=== PATIENT | female | born 1985 | race Caucasian/White ===

== ENCOUNTER 2022-03-03 09:25 | Emergency (ER) | payer BC ==
[~2022-03-03] VITALS: Ht 170 cm; Wt 120.2 kg
[2022-03-03 09:36] VITALS: BP 134/82
--- NOTE | 2022-03-03 11:16 | ED Cough/URI ---
General Chief Complaint: Fever-Adult/Adol Stated Complaint: FEVER,COUGH,NAUSEA Nursing Triage Note: Pt presents with c/o fever, loss of taste and smell and body aches that started Wednesday. Pt is 8 weeks and requesting a Covid PCR. Source: patient Exam Limitations: no limitations History of Present Illness Date Seen by Provider: Mar 03, 2022 Time Seen by Provider: 11:03 Initial Comments Here with concerns about having COVID. [facility] and and had COVID test that was negative. She has had recent loss of taste and smell as well as body aches and a low-grade fever. She is currently 8 weeks and would like repeat testing. Also complains of some left ear pain and and is concerned about sinus infection with sinus pain, nasal drainage and mild cough. Timing/Duration: getting worse, other (2 days) Severity/Quality: mild, moderate, dry cough Prior Episodes/Possible Cause: occasional episodes Associated Symptoms: cough, earache, fever/chills, nasal congestion Allergies and Home Medications Allergies Coded Allergies: No Known Drug Allergies (Unverified , 03/03/22) Patient Home Medication List Home Medication List Reviewed: Yes Review of Systems Review of Systems Constitutional: No chills; fever EENTM: ear pain, nose congestion Respiratory: cough; No short of breath Gastrointestinal: nausea; No vomiting Musculoskeletal: muscle pain; No muscle weakness Skin: no symptoms reported Past Exqwiur-Vgjupw-Serzcc Hx Patient Social History Tobacco Use?: Yes Use of E-Cig and/or Vaping dev: Yes E-Cig or Vaping type used: Nicotine Substance use?: No Alcohol Use?: No Immunizations Up To Date First/Initial COVID19 Vaccinat: unknown Second COVID19 Vaccination Yfn: unknown Past Medical History Surgeries: Yes Abdominal (Gastric sleeve), Gallbladder Respiratory: Yes Asthma Cardiac: No Last Menstrual Period: Jan 04, 2022 Family Medical History Reviewed and Corrections made No Pertinent Family Hx Physical Exam Vital Signs - First Documented 03/03/22 09:36 Temp 36.8 Pulse 74 Resp 18 B/P (MAP) 134/82 (99) Capillary Refill : Less Than 3 Seconds Height: '" Weight: lbs. oz. kg; 41.00 BMI Method: General Appearance: WD/WN, no apparent distress HEENT: PERRL/EOMI, TM abnormal (L) (Mild bulging without erythema), pharyngeal erythema (Mild) Neck: full range of motion, supple, normal inspection; No lymphadenopathy (R), No lymphadenopathy (L) Respiratory: lungs clear, normal breath sounds Cardiovascular: regular rate, rhythm, no murmur Neurologic/Psychiatric: alert, oriented x 3 Skin: normal color, warm/dry Progress/Results/Core Measures Suspected Sepsis SIRS Temperature: Pulse: 74 Respiratory Rate: 18 Blood Pressure 134 /82 Mean: 99 Results/Orders Lab Results Laboratory Tests Test 03/03/22 11:15 Range/Units Influenza Type A (RT-PCR) Not Detected Not Detecte Influenza Type B (RT-PCR) Not Detected Not Detecte SARS-CoV-2 RNA (RT-PCR) Detected H Not Detecte My Orders Orders - SCAR ANDUJAR MD Covid 19 Inhouse Test (03/03/22 11:08) Influenza A And B By Pcr (03/03/22 11:08) Vital Signs/I&O 03/03/22 09:36 Temp 36.8 Pulse 74 Resp 18 B/P (MAP) 134/82 (99) Capillary Refill : Less Than 3 Seconds Blood Pressure Mean: 99 Progress Note : Progress Note Seen and evaluated. We will go ahead and get COVID test especially in light of her and she reports this is a high risk . Monitor patient. 1159: COVID is positive. Patient informed. We did discuss potential for therapeutics but we will defer that to her racking technician. I have sent a copy of the note to his office and she will call him for guidance. Otherwise supportive therapy indicated. This was discussed with the patient. Discharged home with return precautions. Patient verbalized understanding instructions and agreement with plan. Departure Impression Primary Impression: COVID-19 virus infection Disposition: HOME, SELF-CARE Condition: Stable Departure-Patient Inst. Decision time for Depature: 12:00 Referrals: DAVID SOMMERS MD [facility],ALEJANDRO Smith MD (PCP) Primary Care Physician Patient Instructions: COVID-19 and Add. Discharge Instructions: All discharge instructions reviewed with patient and/or family. Voiced understanding. Call Dr. SOMMERS and inform him of the positive COVID results and to discuss the option of COVID therapeutics if indicated by him. Otherwise you may use Tylenol/acetaminophen 1000 mg every 6-8 hours as needed for fever or pain. You may use [id number] Afrin nasal spray or the generic, 12-hour relief, 2 sprays to each nostril twice daily for 3 days only and then stop. Do not use more than 3 days. Drink plenty of fluids and get plenty of rest. You should avoid being in public for the first 5 days of the infection and until fever free for 24 hours. You should then wear a mask while in public for the next 5 days to help prevent spreading infection to other people. Return for worse pain, vomiting, weakness, breathing problems or other concerns as needed. Copy Copies To 1: DAVID SOMMERS MD, TIMOTHY D MD Mar 03, 2022 11:15
== END 2022-03-03 12:17 | disposition home or self-care (01) ==
LOC: ER 09:30
DX: O98.511 Other viral diseases complicating pregnancy, first trimester (principal); U07.1 COVID-19; Z3A.08 8 weeks gestation of pregnancy
CPT/HCPCS: 87636; 99283